=== PATIENT | male | born 1955 | race Caucasian/White ===

== ENCOUNTER 2020-07-31 15:12 | Emergency (ER) | payer MEDICARE, OTHER ==
[~2020-07-31] VITALS: Ht 172.7 cm; Wt 95.3 kg
[~2020-07-31 15:12] MED LIST: AMLO5TAB4 PO; GABA-532 PO; HYDR-3204 PO; METH500T6 PO
--- NOTE | 2020-07-31 15:35 | NUR ---
Dr. Mccain at bedside for MSE
[2020-07-31] MEDS ORDERED: HYDROMORPHONE 1 MG/1 ML DISP.SYRIN IM ONE (16:00)
[2020-07-31] MEDS ORDERED: ONDANSETRON 4 MG/2 ML VIAL IM ONE (16:00)
[2020-07-31] MEDS ORDERED: ONDANSETRON 4 MG/2 ML VIAL ONE (16:02)
[2020-07-31] MEDS ORDERED: HYDROMORPHONE 2 MG/1 ML DISP.SYRIN ONE (16:02)
--- NOTE | 2020-07-31 16:17 | NUR ---
Patient discharged to home in stable condition. Written and verbal after care instructions given. Patient verbalizes understanding of instructions. Stressed follow up or return to ER for worsening s/s. Patient ambulated with steady gait. Patient's ride outside of ED to take patient home. NAD noted
[2020-07-31 16:20] VITALS: BP 136/82
== END 2020-07-31 16:17 | disposition home or self-care (01) ==
LOC: ER 15:12
DX: M25.512 Pain in left shoulder (principal); Z88.6 Allergy status to analgesic agent; Z87.442 Personal history of urinary calculi; Z79.899 Other long term (current) drug therapy
CPT/HCPCS: 93005; 96372 ×2; 99284; J1170; J2405; A4663